=== PATIENT | male | born 1985 | race Caucasian/White ===

== ENCOUNTER 2019-08-08 10:12 | Emergency (ER) | payer BC ==
--- NOTE | 2019-08-08 11:36 | RADIOLOGY REPORT (SQ) ---
EXAM DESCRIPTION: CHEST 2 VIEWS COMPLETED DATE/TIME: 08/08/2019 11:07 am REASON FOR STUDY: Chest Pain COMPARISON: None. EXAM PARAMETERS: NUMBER OF VIEWS: two views TECHNIQUE: Digital Frontal and Lateral radiographic views of the chest acquired. RADIATION DOSE: NA LIMITATIONS: none FINDINGS: LUNGS AND PLEURA: No consolidation, pleural effusion or pneumothorax. MEDIASTINUM AND HILAR STRUCTURES: No mediastinal or hilar contour abnormality. HEART AND VASCULAR STRUCTURES: The cardiac silhouette and pulmonary vasculature are within normal freeman its. BONES: No acute findings. HARDWARE: None. OTHER: No other finding. IMPRESSION: No acute cardiopulmonary process. TECHNICAL DOCUMENTATION: JOB ID: [id number] [employer]- All Rights Reserved Reading location - IP/workstation name: [email or web address]
[2019-08-08 12:01] LABS: INTERNATIONAL RATION (INR) 0.91; PROTHROMBIN TIME 12.2 SEC (11.4-15.4)
--- NOTE | 2019-08-08 12:04 | ER Document Report ---
ED General - General Chief Complaint: Chest Pain Stated Complaint: CHEST PAIN Time Seen by Provider: 08/08/19 11:19 Primary Care Provider: NATALIE PARSON [NO LOCAL MD] - Follow up as needed TRAVEL OUTSIDE OF THE [place] IN LAST 30 DAYS: No - HPI Onset/Duration: Sudden Quality of pain: Achy Severity: Moderate Pain Level: 1 Context: 34 year old male tells me he was heavy in his chest for most of the day yesterday. Episodes were brief - perhaps a second or so he tells me - and then would sujit. Nothing seems to bring these on or makes them go away or lessen them. He became concerned today and wanted to be evaluated. No significant past medical history. Nonsmoker but chews tobacco. He is here with who mentions he may have a degree of anxiety. He does not like or feel comfortable in crowded areas. Works as wheel alignment mechanic for vehicles. Tells me he does aerobic and strength activity at work and never gets chest pain from that. Family history of chest pain but none at age < 45. Exacerbated by: Denies Relieved by: Denies Similar symptoms previously: Yes - Related Data Allergies/Adverse Reactions: Eggs Allergy (Uncoded 08/08/19 10:27) Past Medical History - Social History Smoking Status: Unknown if Ever Smoked Chew tobacco use (# tins/day): No Frequency of alcohol use: Rare Drug Abuse: None Family History: CAD - older indirect relatives Patient has suicidal ideation: No Patient has homicidal ideation: No Review of Systems - Review of Systems Constitutional: No symptoms reported EENT: No symptoms reported Cardiovascular: See HPI, Chest pain Respiratory: No symptoms reported Gastrointestinal: No symptoms reported Genitourinary: No symptoms reported Male Genitourinary: No symptoms reported Musculoskeletal: No symptoms reported Skin: No symptoms reported Hematologic/Lymphatic: No symptoms reported Neurological/Psychological: No symptoms reported Physical Exam - Vital signs Vitals: Temp Pulse Resp BP Pulse Ox 99.0 F 90 15 133/83 H 96 08/08/19 10:23 08/08/19 10:23 08/08/19 10:23 08/08/19 10:23 08/08/19 10:23 Interpretation: Normal - General General appearance: Appears well, Alert - HEENT Head: Normocephalic, Atraumatic Eyes: Normal Pupils: PERRL - Respiratory Respiratory status: No respiratory distress Chest status: Nontender Breath sounds: Normal Chest palpation: Normal - Cardiovascular Rhythm: Regular Heart sounds: Normal auscultation Murmur: No - Abdominal Inspection: Normal Distension: No distension Bowel sounds: Normal Tenderness: Nontender Organomegaly: No organomegaly - Back Back: Normal, Nontender - Extremities General upper extremity: Normal inspection, Nontender, Normal color, Normal ROM, Normal temperature General lower extremity: Normal inspection, Nontender, Normal color, Normal ROM, Normal temperature, Normal weight bearing. No: Antonella's sign - Neurological Neuro grossly intact: Yes Cognition: Normal Orientation: AAOx4 [place] Coma Scale Eye Opening: Spontaneous [place] Coma Scale Verbal: Oriented [place] Coma Scale Motor: Obeys Commands [place] Coma Scale Total: 15 Speech: Normal Motor strength normal: LUE, RUE, LLE, RLE Sensory: Normal - Psychological Associated symptoms: Normal affect, Normal mood - Skin Skin Temperature: Warm Skin Moisture: Dry Skin Color: Normal Course - Re-evaluation Re-evalutation: 08/08/19 14:41 MDM 34 year old healthy male chews tobacco and some family history. Feel he is safe with one set of cardiac markers and may follow up. Discussed this with pt and and they expressed understanding. - Vital Signs Vital signs: Temp Pulse Resp BP Pulse Ox 99.0 F 90 15 124/87 H 98 08/08/19 10:23 08/08/19 10:23 08/08/19 15:01 08/08/19 15:01 08/08/19 15:01 - Laboratory Result Diagrams: 08/08/19 11:37 08/08/19 11:37 Laboratory results interpreted by me: 08/08/19 11:37 Creatine Kinase 181 H - EKG Interpretation by Or EKG shows normal: Sinus rhythm Rate: Normal Rhythm: NSR - NSR Nl axis [address] elevation or depression my interpretation . Discharge - Discharge Clinical Impression: Chest pain at rest Condition: Good Disposition: HOME, SELF-CARE Instructions: Chest Pain of Unclear Cause ([facility]), Family Physicians / Practices Additional Instructions: Rest, See a primary doctor in followup. Please return here for any problems or concerns. Referrals: LOCALMD,NO [NO LOCAL MD] - Follow up as needed
[2019-08-08 12:28] LABS: CREATINE KINASE MB 0.67 ng/mL (<4.55)
[2019-08-08 12:29] LABS: TROPONIN I < 0.012 ng/mL
--- NOTE | 2019-08-08 13:30 | EKG REPORT ---
SEVERITY:- NORMAL ECG - SINUS RHYTHM : Confirmed by: Kade Mac MD 08-Aug-2019 13:30:16
[2019-08-08 14:28] LABS: HEMOGLOBIN 14.6 g/dL (13.5-17.0); MEAN CORPUSCULAR HEMOGLOBIN 30.1 pg (27.0-33.4); MEAN CORPUSCULAR HGB CONC 33.9 g/dL (32.0-36.0); MEAN CORPUSCULAR VOLUME 89 fl (80-97); PLATELET COUNT 213 10^3/uL (150-450); RED BLOOD COUNT 4.84 10^6/uL (4.35-5.55); RED CELL DISTRIBUTION WIDTH 12.6 % (11.5-14.0); WHITE BLOOD COUNT 5.7 10^3/uL (4.0-10.5)
[2019-08-08] MEDS ORDERED: ASPIRIN 81 MG TABLET, CHEWABLE PO ONE (14:43)
[2019-08-08 14:47] LABS: ALBUMIN 4.7 g/dL (3.5-5.0); ALKALINE PHOSPHATASE 45 U/L (38-126); ANION GAP 9 (5-19); ASPARTATE AMINO TRANSFERASE 36 U/L (17-59); BILIRUBIN,DIRECT 0.1 mg/dL (0.0-0.4); BILIRUBIN,TOTAL 0.5 mg/dL (0.2-1.3); BLOOD UREA NITROGEN 15 mg/dL (7-20); CALCIUM 9.9 mg/dL (8.4-10.2); CARBON DIOXIDE 27 mmol/L (22-30); CHLORIDE 103 mmol/L (98-107); GLUCOSE 103 mg/dL (75-110); POTASSIUM 4.4 mmol/L (3.6-5.0); TOTAL PROTEIN 7.7 g/dL (6.3-8.2)
[2019-08-08 15:08] VITALS: BP 124/87
== END 2019-08-08 15:20 | disposition home or self-care (01) ==
LOC: ER 10:12
DX: R07.9 Chest pain, unspecified (principal); Z72.0 Tobacco use; Z91.012 Allergy to eggs; Z82.49 Family history of ischemic heart disease and other diseases of the circulatory system
CPT/HCPCS: 36415; 71046; 80053; 82550; 82553; 83690; 84484; 85027; 85610; 93005; 93010; 99285